=== PATIENT | female | born 2000 | race Caucasian/White ===

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

== ENCOUNTER 2020-09-15 03:18 | Emergency (ER) | payer OTHER, BC ==
[2020-09-15 03:45] LABS: Absolute Lymphocytes (CBC) 3.9 K/uL (0.7-4.9); Basophils % 0.4 % (0-1.3); Hematocrit 42.5 % (36.0-45.0); Lymphocytes % 27.7 % (15.3-44.8); MPV 8.4 fL (7.6-11.3); RBC Red Blood Cell Count 4.93 M/uL (3.86-4.86)
[2020-09-15] MEDS ORDERED: ONDANSETRON 4 MG/2 ML VIAL ONE (03:52)
[2020-09-15] MEDS ORDERED: MORPHINE 4 MG/ML SYR ONE ×2 (03:52→06:58)
[2020-09-15 04:01] LABS: ALT/SGPT 26 U/L (12-78); AST/SGOT 20 U/L (15-37); Albumin 4.3 g/dL (3.4-5.0); Alkaline Phosphatase 120 U/L (45-117); BUN Blood Urea Nitrogen 11 mg/dL (7-18); Bicarbonate 22 mmol/L (21-32); Bilirubin Direct 0.1 mg/dL (0-0.2); Bilirubin Total 0.4 mg/dL (0.2-1.0); Glucose Level 90 mg/dL (74-106); Potassium 3.5 mmol/L (3.5-5.1); Protein, Total 7.9 g/dL (6.4-8.2); Sodium Level 142 mmol/L (136-145)
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
[2020-09-15] MEDS ORDERED: TETANUS & DIPHTHERIA TOX,ADULT 0.5 ML VIAL ONE (06:58)
[2020-09-15 08:51] VITALS: O2SAT 100
[2020-09-15 08:56] VITALS: BP 121/84; TEMP 98
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
== END 2020-09-15 07:40 | disposition short-term general hospital (02) ==
LOC: ER 03:18
DX: J93.9 Pneumothorax, unspecified (principal); F10.129 Alcohol abuse with intoxication, unspecified; S50.812A Abrasion of left forearm, initial encounter; V49.40XA Driver injured in collision with unspecified motor vehicles in traffic accident, initial encounter; Z23 Encounter for immunization
CPT/HCPCS: 85025; 80048; 36415; 80320; 84703; 80076; 70450; 72125; 71260; 70486; 76377; 74177; 73090; 90471; 90714; 96374; 99285; Q9967; J2405; G0390

== ENCOUNTER 2021-01-05 13:26 | Emergency (ER) | payer OTHER, BC ==
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
[2021-01-05] MEDS ORDERED: KETOROLAC 30 MG/ML INJ ONE (14:30)
[2021-01-05 14:59] VITALS: BP 131/81; TEMP 98.6; O2SAT 100
== END 2021-01-05 14:45 | disposition home or self-care (01) ==
LOC: ER 13:26
DX: M54.5 Low back pain (principal); V89.2XXA Person injured in unspecified motor-vehicle accident, traffic, initial encounter; Z87.891 Personal history of nicotine dependence
CPT/HCPCS: 96372; 99283

== ENCOUNTER 2021-08-19 14:35 | Emergency (ER) | payer BC ==
[2021-08-19 15:13] LABS: Urine Blood Trace-intact (Negative); Urine Glucose Negative (Negative); Urine Protein Trace (Negative); Urine Specific Gravity >=1.030 (1.005-1.030); Urine pH 5.5 (5.0-7.0)
[2021-08-19 15:24] LABS: Basophils % 0.4 % (0-1.3); Hematocrit 43.2 % (36.0-45.0); Lymphocytes % 22.1 % (15.3-44.8); MPV 8.2 fL (7.6-11.3); RBC Red Blood Cell Count 5.08 M/uL (3.86-4.86)
[2021-08-19 15:27] LABS: Urine Specific Gravity/Preg >1.030 (1.005-1.030)
[2021-08-19 15:34] LABS: Urine Bacteria <20 /HPF (<20); Urine RBC <5 /HPF (NONE SEEN)
[2021-08-19 15:38] LABS: ALT/SGPT 24 U/L (12-78); AST/SGOT 18 U/L (15-37); Albumin 4.6 g/dL (3.4-5.0); Alkaline Phosphatase 103 U/L (45-117); BUN Blood Urea Nitrogen 13 mg/dL (7-18); Bicarbonate 23 mmol/L (21-32); Bilirubin Direct 0.2 mg/dL (0-0.2); Bilirubin Total 0.8 mg/dL (0.2-1.0); Glucose Level 88 mg/dL (74-106); Lipase 45 U/L (73-393); Potassium 3.8 mmol/L (3.5-5.1); Sodium Level 137 mmol/L (136-145)
[2021-08-19 15:40] LABS: Urine Mucus HEAVY /HPF (NONE SEEN)
--- NOTE | 2021-08-19 15:51 | ER ---
Nurse's Notes [facility] Name: Kasey Bennett Age: 21 yrs Sex: Female : 2000 Arrival Date: 08/19/2021 Time: 14:37 Bed 26 Private MD: Diagnosis: Nausea with vomiting, unspecified Presentation: 08/19 14:41 Chief complaint: Patient states: nausea and vomiting X 4 days, unable to keep food ld1 down. Pt reports going to doctor this week, stated she is on abx for UTI and yeast infection. C/O 8/10 pain in lower back. Chief complaint:. Coronavirus screen: At this time, the client does not indicate any symptoms associated with coronavirus-19. Ebola Screen: No symptoms or risks identified at this time. Initial Sepsis Screen: Does the patient meet any 2 criteria? No. Patient's initial sepsis screen is negative. Does the patient have a suspected source of infection? No. Patient's initial sepsis screen is negative. Risk Assessment: Do you want to hurt yourself or someone else? Patient reports no desire to harm self or others. Onset of symptoms was August 19, 2021. 14:41 Method Of Arrival: Ambulatory ld1 14:41 Acuity: NITHYA 3 ld1 Triage Assessment: 14:45 General: Appears in no apparent distress. comfortable, Behavior is calm, cooperative, ld1 appropriate for age. Pain: Complains of pain in lumbar area, left low back and right low back Pain does not radiate. Pain currently is 8 out of 10 on a pain scale. Quality of pain is described as stabbing, Pain began gradually, Is continuous. EENT: No signs and/or symptoms were reported regarding the EENT system. Neuro: Level of Consciousness is awake, alert, obeys commands, Oriented to person, place, time, situation. Cardiovascular: Capillary refill < 3 seconds Patient's skin is warm and dry. Respiratory: Reports shortness of breath Airway is patent Respiratory effort is even, unlabored, Respiratory pattern is regular, symmetrical, Denies cough. GI: Abdomen is flat, non-distended, Reports diarrhea, intolerance of fluids, intolerance of food, nausea, vomiting. : Reports vaginal itching. Derm: No signs and/or symptoms reported regarding the dermatologic system. Musculoskeletal: No signs and/or symptoms reported regarding the musculoskeletal system. 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 - Social history:: Smoking status: Patient denies any tobacco usage or history of. Patient uses alcohol, but reports only rare drinking. street drugs, marijuana. Screenin:54 Abuse screen: Denies threats or abuse. Nutritional screening: Has had N/V for 3 or more ap3 days. Tuberculosis screening: No symptoms or risk factors identified. Fall Risk None identified. Assessment: 15:16 General: Appears in no apparent distress. Behavior is calm, cooperative. Pain: ap3 Complains of pain in back and right low back and left low back and lumbar area. Neuro: Level of Consciousness is awake, alert, obeys commands, Oriented to person, place, time, situation, Moves all extremities. Gait is steady, Speech is normal. Cardiovascular: Capillary refill < 3 seconds Patient's skin is warm and dry. Respiratory: Airway is patent Respiratory effort is even, unlabored, Respiratory pattern is regular, symmetrical. GI: Abdomen is flat, Bowel sounds present X 4 quads. Abd is soft and non tender X 4 quads. : Reports vaginal itching. 16:02 Reassessment: awaiting fluid completion for discharge. ap3 Vital Signs: 14:41 BP 125 / 82; Pulse 104; Resp 18; Temp 98.2(O); Pulse Ox 97% on R/A; Weight 82.55 kg; ld1 Height 5 ft. 9 in. (175.26 cm); Pain 8/10; 15:46 BP 144 / 95; Pulse 87; Pulse Ox 100% on R/A; ap3 14:41 Body Mass Index 26.88 (82.55 kg, 175.26 cm) ld1 ED Course: 14:37 Patient arrived in ED. ds1 14:44 Triage completed. ld1 14:45 Regina Guy FNP-C [facility]. kb 14:45 Bryan Ray MD is Attending Physician. kb 14:45 Arm band placed on right wrist. ld1 14:52 Yodit Matias, LAYO is Primary Nurse. ap3 14:54 Patient has correct armband on for positive identification. Bed in low position. Call ap3 light in reach. Side rails up X 1. Pulse ox on. NIBP on. Door closed. Noise minimized. 15:05 Inserted saline lock: 20 gauge in right antecubital area, using aseptic technique. ap3 Blood collected. 17:00 No provider procedures requiring assistance completed. IV discontinued, intact, ap3 bleeding controlled, No redness/swelling at site. Pressure dressing applied. Administered Medications: 15:53 Drug: NS 0.9% 1000 ml Route: IV; Rate: 1 bolus; Site: right antecubital; ap3 16:59 Follow up: IV Status: Completed infusion; IV Intake: 1000ml ap3 15:53 Drug: Zofran (Ondansetron) 4 mg Route: IVP; Site: right antecubital; ap3 16:59 Follow up: Response: No adverse reaction ap3 Intake: 16:59 IV: 1000ml; Total: 1000ml. ap3 Outcome: 15:50 Discharge ordered by . kb 17:00 Discharged to home ambulatory. ap3 17:00 Condition: good 17:00 Discharge instructions given to patient, Instructed on discharge instructions, follow up and referral plans. safe sex practices, Demonstrated understanding of instructions, follow-up care, medications, Prescriptions given X 1. 17:08 Patient left the ED. ap3 Signatures: Regina Guy FNP-C HOTEL RECREATIONAL FACILITIES MANAGER-Ashleigh Gonsalez ds1 Yodit Matias, LAYO VASQUES ap3 Cathryn Villagomez RN RN ld1
--- NOTE | 2021-08-19 15:51 | EDPHYS ---
Physician Documentation [facility] Name: Kasey Bennett Age: 21 yrs Sex: Female : 2000 Arrival Date: 08/19/2021 Time: 14:37 Bed 26 Private MD: ED Physician Bryan Ray HPI: 08/19 15:02 This 21 yrs old Female presents to ER via Ambulatory with complaints of kb Nausea/Vomiting, Near Syncope. 15:02 The patient presents to the emergency department with nausea, vomiting. Onset: The kb symptoms/episode began/occurred 4 day(s) ago. Possible causes: unknown. The symptoms are aggravated by nothing. The symptoms are alleviated by nothing. Associated signs and symptoms: Pertinent positives: nausea, vomiting. Severity of symptoms: At their worst the symptoms were moderate in the emergency department the symptoms are unchanged. The patient has not experienced similar symptoms in the past. The patient has been recently seen by a physician:. Pt reports nausea and vomiting for 4 days. Has been being treated for UTI and yeast infection. Taking Bactrim and Flagyl. States she has tried monistat and diflucan for the yeast infection and it didn't work. 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 - Social history:: Smoking status: Patient denies any tobacco usage or history of. Patient uses alcohol, but reports only rare drinking. street drugs, marijuana. ROS: 15:11 Constitutional: Negative for fever, chills, and weight loss. kb 15:11 Abdomen/GI: Positive for nausea and vomiting, Negative for abdominal pain. 15:11 All other systems are negative. Exam: 15:12 Constitutional: This is a well developed, well nourished patient who is awake, alert, kb and in no acute distress. Head/Face: Normocephalic, atraumatic. ENT: Moist Mucous membranes Respiratory: Respirations even and unlabored. No increased work of breathing, no retractions or nasal flaring. Abdomen/GI: Soft, non-tender. No distention Skin: Warm, dry with normal turgor. Normal color. MS/ Extremity: Pulses equal, no cyanosis. Neurovascular intact. Full, normal range of motion. Neuro: Awake and alert, GCS 15, oriented to person, place, time, and situation. Moves all extremities. Normal gait. Psych: Awake, alert, with orientation to person, place and time. Behavior, mood, and affect are within normal limits. Vital Signs: 14:41 BP 125 / 82; Pulse 104; Resp 18; Temp 98.2(O); Pulse Ox 97% on R/A; Weight 82.55 kg; ld1 Height 5 ft. 9 in. (175.26 cm); Pain 8/10; 15:46 BP 144 / 95; Pulse 87; Pulse Ox 100% on R/A; ap3 14:41 Body Mass Index 26.88 (82.55 kg, 175.26 cm) ld1 MDM: 14:52 Patient medically screened. kb 15:11 Data reviewed: vital signs, nurses notes. Data interpreted: Pulse oximetry: on room air kb is 97 %. Interpretation: normal. 15:49 Counseling: I had a detailed discussion with the patient and/or guardian regarding: the kb historical points, exam findings, and any diagnostic results supporting the discharge/admit diagnosis, lab results, radiology results, the need for outpatient follow up, a family practitioner, to return to the emergency department if symptoms worsen or persist or if there are any questions or concerns that arise at home. 08/19 14:46 Order name: Basic Metabolic Panel kb 08/19 14:46 Order name: CBC with Diff kb 08/19 14:46 Order name: Hepatic Function; Complete Time: 15:38 kb 08/19 14:46 Order name: Lipase; Complete Time: 15:38 kb 08/19 14:46 Order name: Urine Microscopic Only; Complete Time: 15:41 kb 08/19 14:46 Order name: Basic Metabolic Panel; Complete Time: 15:38 EDMS 08/19 14:46 Order name: IV Saline Lock; Complete Time: 15:14 kb 08/19 14:46 Order name: Labs collected and sent; Complete Time: 15:14 kb 08/19 14:46 Order name: Urine Dipstick-Ancillary (obtain specimen); Complete Time: 15:14 kb 08/19 14:46 Order name: CBC with Automated Diff; Complete Time: 15:32 EDMS 08/19 15:12 Order name: Urine Dipstick-Ancillary; Complete Time: 15:14 EDMS 08/19 15:15 Order name: Urine --Ancillary (enter results); Complete Time: 15:29 bd 08/19 14:46 Order name: Urine Test (obtain specimen); Complete Time: 15:14 kb 08/19 15:39 Order name: PO challenge; Complete Time: 15:51 kb Administered Medications: 15:53 Drug: NS 0.9% 1000 ml Route: IV; Rate: 1 bolus; Site: right antecubital; ap3 16:59 Follow up: IV Status: Completed infusion; IV Intake: 1000ml ap3 15:53 Drug: Zofran (Ondansetron) 4 mg Route: IVP; Site: right antecubital; ap3 16:59 Follow up: Response: No adverse reaction ap3 Disposition: 08/20 14:22 Co-signature as Attending Physician, Bryan Ray MD I agree with the assessment and sp3 plan of care. Disposition Summary: 08/19/21 15:50 Discharge Ordered Location: Home kb Condition: Stable kb Diagnosis - Nausea with vomiting, unspecified kb Followup: kb - With: Emergency Department - When: As needed - Reason: Worsening of condition Followup: kb - With: Private Physician - When: 2 - 3 days - Reason: Recheck today's complaints, Continuance of care, Re-evaluation by your physician Discharge Instructions: - Discharge Summary Sheet kb - Nausea and Vomiting, Adult, [id number] kb Forms: - Medication Reconciliation Form kb - Thank You Letter kb - Antibiotic Education kb - Prescription Opioid Use kb Prescriptions: - Zofran 4 mg Oral Tablet - take 1 tablet by ORAL route every 6 hours As needed; 20 tablet; Refills: 0, kb Product Selection Permitted Signatures: Dispatcher [employer] EDRegina Pineda FNP-C [employer] Yodit Matias, RN RN ap3 Cathryn Villagomez, RN RN ld1 Bryan Ray MD MD sp3
[2021-08-19] MEDS ORDERED: ONDANSETRON 4 MG/2 ML VIAL ONE (16:18)
[2021-08-19] MEDS ORDERED: NA CHLORIDE 0.9% 1,000 ML ONE (16:18)
[2021-08-19 17:20] VITALS: TEMP 98.2
[2021-08-19 17:21] VITALS: BP 144/95; O2SAT 100
== END 2021-08-19 17:08 | disposition home or self-care (01) ==
LOC: ER 14:35
DX: R11.2 Nausea with vomiting, unspecified (principal)
CPT/HCPCS: 85025; 80048; 36415; 81025; 80076; 83690; 96374; 99284; J7030; J2405; 81003; 81015

== ENCOUNTER 2021-12-13 12:40 | Emergency (ER) | payer BC ==
[2021-12-13 14:34] LABS: Urine Blood Negative (Negative); Urine Glucose Negative (Negative); Urine Protein 1+ (Negative)
[2021-12-13] MEDS ORDERED: ONDANSETRON 4 MG/2 ML VIAL ONE (15:07)
[2021-12-13] MEDS ORDERED: NA CHLORIDE 0.9% 1,000 ML ONE (15:08)
[2021-12-13 15:25] LABS: Absolute Lymphocytes (CBC) 2.5 K/uL (0.7-4.9); Hematocrit 42.9 % (36.0-45.0); Lymphocytes % 19.5 % (15.3-44.8); RBC Red Blood Cell Count 4.85 M/uL (3.86-4.86)
[2021-12-13 15:35] LABS: BUN Blood Urea Nitrogen 13 mg/dL (7-18); Bicarbonate 27 mmol/L (21-32); Glucose Level 95 mg/dL (74-106); Potassium 3.5 mmol/L (3.5-5.1); Sodium Level 137 mmol/L (136-145)
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
[2021-12-13 16:57] VITALS: O2SAT 100
[2021-12-13 16:58] VITALS: BP 125/77
[2021-12-13 17:01] VITALS: TEMP 98.2
== END 2021-12-13 16:38 | disposition home or self-care (01) ==
LOC: ER 12:40
DX: R11.2 Nausea with vomiting, unspecified (principal)
CPT/HCPCS: 96361; 85025; 80048; 36415; 81025; 81003; 96374; 99283; J7030; J2405